=== PATIENT | female | born 2000 | race Caucasian/White ===

== ENCOUNTER 2024-03-28 13:01 | Outpatient (CLI) | payer OTHER ==
[~2024-03-28] VITALS: Ht 162.6 cm; Wt 60.3 kg
[2024-03-28 11:48] VITALS: BP 112/76
[2024-03-28] MEDS ORDERED: IRON325 MG PO (13:18)
[2024-03-28] MEDS ORDERED: PRENATAL TABLE1 EAC1 PO (13:19)
== END 2024-03-28 14:17 | disposition home or self-care (01) ==
LOC: OBS/DEL 13:01
PROVIDERS: ATTEND Obstetrics & Gynecology
DX: O36.8130 Decreased fetal movements, third trimester, not applicable or unspecified (principal); Z3A.29 29 weeks gestation of pregnancy